=== PATIENT | male | born 1975 | race Caucasian/White ===

== ENCOUNTER 2017-09-29 02:10 | Emergency (ER) | payer OTHER ==
[2017-09-29] MEDS ORDERED: Proparacaine 0.5% Ophth Soln 15 ML Bottle EYERT STA (02:22)
[2017-09-29] MEDS ORDERED: Fluorescein 0.6 MG Ophth Strip EYERT STA (02:23)
--- NOTE | 2017-09-29 02:24 | EDM.PDOC ---
ED HPI GENERAL MEDICAL PROBLEM - General Chief Complaint: ENT Problem Stated Complaint: R EYE PAIN Time Seen by Provider: 09/29/17 02:20 Source of Information: Reports: Patient History Limitations: Reports: No Limitations - History of Present Illness INITIAL COMMENTS - FREE TEXT/NARRATIVE: The patient states that he was rotating tires on his 's vehicle around 05: 00 yesterday morning, 09/28/2017, when he saw something go under his glasses into his right eye. He merely had a foreign body sensation. Initially, it was not a problem, however, it has progressively gotten worse. He states that he woke around midnight last night with a watery and bloodshot eye. The patient states that he has a PCP, but does not recall who it is. Right Eye Pain Score (Numeric/FACES): 8 - Related Data Allergies Allergy/AdvReac Type Severity Reaction Status Date / Time No Known Allergies Allergy Verified 09/29/17 02:15 Home Meds: Home Meds Ketorolac [Acular 0.5% Ophth Soln] 1 drop EYERT Q6H PRN #1 bottle 09/29/17 [Rx] Past Medical History - Past Surgical History HEENT Surgical History: Reports: Oral Surgery ([place] teeth extraction) Musculoskeletal Surgical History: Reports: ORIF (left leg) Social & Family History - Tobacco Use Smoking Status *Q: Current Every Day Smoker Years of Tobacco use: 19 Packs/Tins Daily: 0.1 Packs/Tins Daily Comment: Down from 1 ppd - Alcohol Use Alcohol Use History: Yes Alcohol Use Frequency: Socially - Recreational Drug Use Recreational Drug Use: No - Living Situation & Occupation Living situation: Reports: , with Spouse, with Family (2 kids) Occupation: Employed ([employer]) ED ROS GENERAL - Review of Systems Review Of Systems: ROS reveals no pertinent complaints other than HPI. ED EXAM GENERAL W FULL EYE - Physical Exam Exam: See Below Exam Limited By: No Limitations General Appearance: Alert, WD/WN, Mild Distress Eye Exam: Bilateral Eye: EOMI, PERRL Eyelids: Bilateral: Normal Appearance Conjunctiva & Sclera: Right: Injected, Left: Normal Appearance Cornea Exam: Right: Corneal Abrasion (punctate, around 4:00 position), Examined with Flourescein Extraocular Movements: Bilateral: Intact Pupils: Normal Accommodation Pupillary Size: Bilateral: 5 mm Pupillary Reaction: Bilateral: Brisk Anterior Chamber: Bilateral: Normal Appearance Course - Vital Signs Last Recorded V/S: Last Vital Signs Temp 36.0 C 09/29/17 02:15 Pulse 66 09/29/17 02:15 Resp 16 09/29/17 02:15 BP 133/89 09/29/17 02:15 Pulse Ox 98 09/29/17 02:15 - Orders/Labs/Meds Meds: Medications Discontinued Medications Generic Name Dose Route Start Last Admin Trade Name Lobo PRN Reason Stop Dose Admin Fluorescein Sodium 0.6 mg 09/29/17 02:23 Ful-Lilly EYERT 09/29/17 02:24 ONETIME STA Proparacaine HCl 1 ml 09/29/17 02:22 Proparacaine 0.5% Ophth Soln EYERT 09/29/17 02:23 ONETIME STA - Re-Assessments/Exams Free Text/Narrative Re-Assessment/Exam: 09/29/17 02:43 The patient has a punctate corneal abrasion at approximately the 4:00 position. He has significant relief following proparacaine. I will e-prescribe Acular. I don't see an indication for antibiotic eyedrops. Departure - Departure Time of Disposition: 02:44 Disposition: Home, Self-Care 01 Condition: Fair Clinical Impression: Corneal abrasion - Discharge Information Prescriptions: Ketorolac [Acular 0.5% Ophth Soln] 1 drop EYERT Q6H PRN #1 bottle PRN Reason: Pain Instructions: Corneal Abrasion, [id number] Referrals: PCP,None [Primary Care Provider] - Forms: ED Department Discharge Additional Instructions: You were seen in the emergency room for a foreign body sensation to your right eye. Evaluation in the ER of your right eye included numbing medicine, dye, a Wood's lamp, and a slit lamp evaluation, confirming a small corneal abrasion. A prescription for the eye-pain medicine Acular has been sent to the [facility]. Instill one drop in your right eye every 6 hours, as needed for pain. If you continue to have pain in the right eye past a few days, please follow-up with an eye doctor. If any other problems, please do not hesitate to return to the ER.
== END 2017-09-29 03:00 | disposition home or self-care (01) ==
LOC: JD.ED 02:10
DX: S05.01XA Injury of conjunctiva and corneal abrasion without foreign body, right eye, initial encounter (principal); F17.210 Nicotine dependence, cigarettes, uncomplicated; W45.8XXA Other foreign body or object entering through skin, initial encounter; Y93.89 Activity, other specified
CPT/HCPCS: 99283

== ENCOUNTER 2022-07-01 15:03 | Emergency (ER) | payer BC | END 2022-07-01 16:46 | disposition home or self-care (01) | LOC: JD.ED 15:03 | DX: K61.1 Rectal abscess (principal); Z79.899 Other long term (current) drug therapy | CPT/HCPCS: 99282 ==